=== PATIENT | male | born 1980 | race African-American/Black ===

== ENCOUNTER 2019-08-26 12:16 | Emergency (ER) | payer OTHER ==
[~2019-08-26] VITALS: Ht 185.4 cm; Wt 111.6 kg
[2019-08-26] MEDS ORDERED: SODIUM CHLORIDE 0.9% 1,000 ML IV ONE (12:26)
[2019-08-26 13:14] LABS: Basophils # (auto) 0 uL; Basophils % (auto) 0.5 % (0.0-2.0); Eosinophils # (auto) 0.1 uL; Hemoglobin 14.2 g/dL (13.5-17.5); Mean Corpuscular Hgb Conc. 32.1 g/dL (32.0-36.0); Monocytes # (auto) 0.5 uL; Nucleated Red Blood Cells % 0.1 %
[2019-08-26 13:20] LABS: Eosinophils % (auto) 1.1 % (0.0-7.0); Hematocrit 44.3 % (41.0-53.0); Lymphocytes % (auto) 13.7 % (10.0-50.0); Mean Corpuscular Hemoglobin 23.3 pg (28.0-32.0); Mean Corpuscular Volume 72.7 fL (80.0-100.0); Neutrophils # (auto) 5.9 uL; Neutrophils % (auto) 77.7 % (37.0-80.0); Platelet Count (auto) 172 10^3/uL (140-450); Red Cell Distribution Width 14.6 % (11.8-14.3); White Blood Cell 7.5 10^3/uL (4.4-10.8)
[2019-08-26 13:43] LABS: Alanine Aminotransferase 55 U/L (16-61); Albumin 3.7 g/dL (3.4-5.0); Anion Gap 4 (5-15); Blood Alcohol < 3.0 mg/dL (0-5); Blood Urea Nitrogen 12 mg/dL (7-18); Calcium 8.3 mg/dL (8.5-10.1); Carbon Dioxide 29 mmol/L (21-32); Chloride 109 mmol/L (98-107); Glucose 99 mg/dL (74-106); Potassium 3.9 mmol/L (3.5-5.1); Sodium 142 mmol/L (136-145)
[2019-08-26 13:48] LABS: Alkaline Phosphatase 75 U/L (45-117); Aspartate Aminotransferase 42 U/L (15-37); BUN/Creatinine Ratio 10.8; Bilirubin, Total 0.3 mg/dL (0.2-1.0); GFR African American 95 mL/min; GFR Non-African American 79 mL/min; Total Protein 7.5 g/dL (6.4-8.2)
[2019-08-26 14:16] LABS: Salicylate < 1.7 mg/dL (2.8-20.0)
[2019-08-26 14:19] LABS: Acetaminophen < 2.0 ug/mL (10-30)
[2019-08-26 15:45] VITALS: BP 135/87
== END 2019-08-26 16:02 | disposition home or self-care (01) ==
LOC: ER 12:25
DX: S00.83XA Contusion of other part of head, initial encounter (principal); T43.222A Poisoning by selective serotonin reuptake inhibitors, intentional self-harm, initial encounter; T39.312A Poisoning by propionic acid derivatives, intentional self-harm, initial encounter; X79.XXXA Intentional self-harm by blunt object, initial encounter; Y93.89 Activity, other specified; Y92.89 Other specified places as the place of occurrence of the external cause; Y99.8 Other external cause status
CPT/HCPCS: 36415; 70450; 71046; 80053; 80320; 80329; 84484; 85025; 96360; 96361; 99284; J7030

== ENCOUNTER 2019-09-30 12:50 | Emergency (ER) | payer OTHER ==
[~2019-09-30] VITALS: Ht 185.4 cm; Wt 108.9 kg
[2019-09-30 14:17] LABS: Alanine Aminotransferase 45 U/L (16-61); Albumin 4.1 g/dL (3.4-5.0); Anion Gap 4 (5-15); Aspartate Aminotransferase 39 U/L (15-37); BUN/Creatinine Ratio 8.7; Blood Alcohol < 3.0 mg/dL (0-5); Blood Urea Nitrogen 10 mg/dL (7-18); Calcium 9.3 mg/dL (8.5-10.1); Carbon Dioxide 30 mmol/L (21-32); Chloride 109 mmol/L (98-107); GFR African American 91 mL/min; GFR Non-African American 75 mL/min; Glucose 79 mg/dL (74-106); Magnesium 2.2 mg/dL (1.6-2.6); Sodium 143 mmol/L (136-145)
[2019-09-30 14:19] LABS: Acetaminophen < 2.0 ug/mL (10-30); Salicylate 1.8 mg/dL (2.8-20.0)
[2019-09-30 14:20] LABS: Alkaline Phosphatase 76 U/L (45-117); Bilirubin, Total 0.3 mg/dL (0.2-1.0); Total Protein 7.6 g/dL (6.4-8.2)
[2019-09-30 14:44] LABS: Basophils # (auto) 0 uL; Basophils % (auto) 0.7 % (0.0-2.0); Eosinophils # (auto) 0.1 uL; Eosinophils % (auto) 2.6 % (0.0-7.0); Hematocrit 46.9 % (41.0-53.0); Hemoglobin 14.9 g/dL (13.5-17.5); Lymphocytes # (auto) 1.6 uL; Lymphocytes % (auto) 33.3 % (10.0-50.0); Mean Corpuscular Hemoglobin 23.1 pg (28.0-32.0); Mean Corpuscular Hgb Conc. 31.8 g/dL (32.0-36.0); Mean Corpuscular Volume 72.6 fL (80.0-100.0); Monocytes # (auto) 0.3 uL; Neutrophils # (auto) 2.7 uL; Neutrophils % (auto) 56.4 % (37.0-80.0); Nucleated Red Blood Cells % 0.3 %; Platelet Count (auto) 177 10^3/uL (140-450); Red Blood Cells 6.45 10^6/uL (4.5-5.90); Red Cell Distribution Width 14.6 % (11.8-14.3); White Blood Cell 4.8 10^3/uL (4.4-10.8)
[2019-09-30] MEDS ORDERED: SODIUM CHLORIDE 0.9% 1,000 ML IV ONE ×2 (16:54)
[2019-09-30 17:37] LABS: Alcohol, Urine < 3.0 mg/dL (0-5); Amphetamine Screen, Urine NEGATIVE (NEGATIVE); Barbiturate Scree,Urine NEGATIVE (NEGATIVE); Benzodiazephine Screen, Urine NEGATIVE (NEGATIVE); Cannabinoid Screen, Urine NEGATIVE (NEGATIVE); Cocaine Screen, Urine NEGATIVE (NEGATIVE); Opiate Scree,Urine NEGATIVE (NEGATIVE); Phencyclidine Screen, Urine NEGATIVE (NEGATIVE)
[2019-09-30 18:28] VITALS: BP 132/79
== END 2019-09-30 18:31 | disposition home or self-care (01) ==
LOC: EDBD 12:50 → ER 12:53
DX: R45.851 Suicidal ideations (principal); F32.9 Major depressive disorder, single episode, unspecified; F41.9 Anxiety disorder, unspecified; R41.0 Disorientation, unspecified
CPT/HCPCS: 36415; 74018; 80053; 80307; 80320; 80329; 83540; 83735; 93005; 96360; 99284; J7030

== ENCOUNTER 2019-10-01 12:17 | Emergency (ER) | payer OTHER ==
[~2019-10-01] VITALS: Ht 185.4 cm; Wt 108.9 kg
[2019-10-01 13:31] LABS: Hemoglobin 14.3 g/dL (13.5-17.5); Monocytes # (auto) 0.4 uL; Neutrophils # (auto) 2.5 uL
[2019-10-01 13:33] LABS: Basophils # (auto) 0.1 uL; Basophils % (auto) 1.1 % (0.0-2.0); Eosinophils # (auto) 0.2 uL; Eosinophils % (auto) 4.8 % (0.0-7.0); Hematocrit 44.5 % (41.0-53.0); Lymphocytes # (auto) 1.8 uL; Lymphocytes % (auto) 36.9 % (10.0-50.0); Mean Corpuscular Hemoglobin 23.2 pg (28.0-32.0); Mean Corpuscular Hgb Conc. 32.2 g/dL (32.0-36.0); Mean Corpuscular Volume 72.2 fL (80.0-100.0); Monocytes % (auto) 7.7 % (0.0-12.0); Neutrophils % (auto) 49.5 % (37.0-80.0); Nucleated Red Blood Cells % 0.1 %; Platelet Count (auto) 181 10^3/uL (140-450); Red Blood Cells 6.16 10^6/uL (4.5-5.90); Red Cell Distribution Width 14.4 % (11.8-14.3)
[2019-10-01 13:51] LABS: Albumin 3.9 g/dL (3.4-5.0); BUN/Creatinine Ratio 9.9; Calcium 9.1 mg/dL (8.5-10.1); Potassium 3.7 mmol/L (3.5-5.1); Salicylate < 1.7 mg/dL (2.8-20.0)
[2019-10-01 13:53] LABS: Acetaminophen < 2.0 ug/mL (10-30)
[2019-10-01 13:54] LABS: Bilirubin, Total 0.3 mg/dL (0.2-1.0); Total Protein 7.8 g/dL (6.4-8.2)
[2019-10-01 13:59] LABS: INR 1.01 (0.9-1.15); Partial Thromboplastin Time 28.1 sec (23.64-32.05)
[2019-10-01 14:12] LABS: Bilirubin, Direct 0.1 mg/dL (0-0.2); Bilirubin, Total 0.4 mg/dL (0.2-1.0); Total Protein 7.5 g/dL (6.4-8.2)
[2019-10-01 17:24] VITALS: BP 136/76
== END 2019-10-01 17:35 ==
LOC: ER 12:17 → EEVIPCON 12:17 → ER 17:35
DX: T39.311A Poisoning by propionic acid derivatives, accidental (unintentional), initial encounter (principal); M47.896 Other spondylosis, lumbar region; F41.9 Anxiety disorder, unspecified; F32.9 Major depressive disorder, single episode, unspecified; Y92.9 Unspecified place or not applicable
CPT/HCPCS: 36415; 71046; 72131; 80053; 80076; 80329; 83540; 83550; 85025; 85610; 85730

== ENCOUNTER 2019-12-17 14:31 | Inpatient (IN) | payer OTHER ==
[~2019-12-17] VITALS: Ht 185.4 cm; Wt 112.0 kg
[2019-12-17 15:19] LABS: Basophils # (auto) 0 uL; Eosinophils # (auto) 0 uL; Hemoglobin 14.4 g/dL (13.5-17.5); Monocytes # (auto) 0.4 uL; Monocytes % (auto) 4.6 % (0.0-12.0); Red Cell Distribution Width 14.7 % (11.8-14.3)
[2019-12-17 15:22] LABS: Basophils % (auto) 0.4 % (0.0-2.0); Eosinophils % (auto) 0.1 % (0.0-7.0); Hematocrit 45.2 % (41.0-53.0); Lymphocytes # (auto) 1.1 uL; Lymphocytes % (auto) 11.9 % (10.0-50.0); Mean Corpuscular Hemoglobin 23.2 pg (28.0-32.0); Mean Corpuscular Hgb Conc. 31.8 g/dL (32.0-36.0); Mean Corpuscular Volume 72.9 fL (80.0-100.0); Neutrophils # (auto) 7.6 uL; Platelet Count (auto) 189 10^3/uL (140-450); Red Blood Cells 6.19 10^6/uL (4.5-5.90); White Blood Cell 9.2 10^3/uL (4.4-10.8)
[2019-12-17 15:36] LABS: Alcohol, Urine < 3.0 mg/dL (0-5); Amphetamine Screen, Urine NEGATIVE (NEGATIVE); Barbiturate Scree,Urine NEGATIVE (NEGATIVE); Benzodiazephine Screen, Urine NEGATIVE (NEGATIVE); Cannabinoid Screen, Urine NEGATIVE (NEGATIVE); Cocaine Screen, Urine NEGATIVE (NEGATIVE); Opiate Scree,Urine NEGATIVE (NEGATIVE); Phencyclidine Screen, Urine NEGATIVE (NEGATIVE)
[2019-12-17 15:39] LABS: Albumin 4.1 g/dL (3.4-5.0); Anion Gap 6 (5-15); Blood Alcohol < 3.0 mg/dL (0-5); Blood Urea Nitrogen 12 mg/dL (7-18); Calcium 9.1 mg/dL (8.5-10.1); Carbon Dioxide 26 mmol/L (21-32); Chloride 107 mmol/L (98-107); Glucose 90 mg/dL (74-106); Sodium 139 mmol/L (136-145)
[2019-12-17 15:43] LABS: Alanine Aminotransferase 45 U/L (16-61); Alkaline Phosphatase 72 U/L (45-117); Aspartate Aminotransferase 30 U/L (15-37); BUN/Creatinine Ratio 10.6; Bilirubin, Total 0.4 mg/dL (0.2-1.0); GFR African American 93 mL/min; GFR Non-African American 77 mL/min; Total Protein 8.2 g/dL (6.4-8.2)
[2019-12-17 16:10] LABS: Salicylate < 1.7 mg/dL (2.8-20.0)
[2019-12-17] MEDS ORDERED: D5W/SOD CHL 0.45% 1,000 ML IV ONE (17:30)
[2019-12-17] MEDS ORDERED: MORPHINE SULF INJ 2 MG/ML SYRINGE 1ML IV PRN (17:30)
[2019-12-17] MEDS ORDERED: NITROGLYCERIN 0.4 MG SL TAB SL PRN (17:30)
[2019-12-17 17:47] LABS: % Iron Saturation 86.4 % (20-55)
[2019-12-17 18:18] LABS: Acetaminophen < 2.0 ug/mL (10-30)
[2019-12-17 21:35] LABS: Albumin 3.7 g/dL (3.4-5.0); Calcium 8.6 mg/dL (8.5-10.1); Potassium 3.7 mmol/L (3.5-5.1)
[2019-12-17 21:39] LABS: % Iron Saturation 89.2 % (20-55); BUN/Creatinine Ratio 10.3; Bilirubin, Total 0.5 mg/dL (0.2-1.0); Total Protein 7.5 g/dL (6.4-8.2)
--- NOTE | 2019-12-17 22:50 | NUR ---
Telemetry admit from ER CARMEN CHENG admitted to Telemetry unit after SBAR received. Patient oriented to LOUIE BAÑUELOS primary RN, unit, room, bed, and unit policies regarding patient care and visiting hours. Patient now on continuous telemetry monitoring, tele box # 14 and telemetry reading on arrival to unit is NSR at 60bpm. Patient is A/Ox4, skin intact, on RA, no complaints of pain, SOB, or any distress. Call light is within reach. Guards are at bedside for safety. Patient weighed by bedscale and encouraged to call if they need something. All questions and concerns addressed, patient verbalized understanding.
--- NOTE | 2019-12-17 23:16 | NUR ---
Iza from poison control called. Updated on patient's status. Lab levels given. She stated they will follow up in the morning again to check on the patient.
[2019-12-17] MEDS ORDERED: SERT20CO PO (23:38)
[2019-12-18 01:37] LABS: Albumin 3.8 g/dL (3.4-5.0); BUN/Creatinine Ratio 11.9; Calcium 8.1 mg/dL (8.5-10.1); Potassium 3.7 mmol/L (3.5-5.1)
[2019-12-18 01:40] LABS: Bilirubin, Total 0.4 mg/dL (0.2-1.0); Total Protein 7.1 g/dL (6.4-8.2)
[2019-12-18 02:08] LABS: % Iron Saturation 81.2 % (20-55)
[2019-12-18 05:30] VITALS: BP 127/76
[2019-12-18 05:56] LABS: Basophils # (auto) 0 uL; Basophils % (auto) 0.7 % (0.0-2.0); Eosinophils # (auto) 0.2 uL; Eosinophils % (auto) 3.6 % (0.0-7.0); Hematocrit 40.9 % (41.0-53.0); Hemoglobin 13.3 g/dL (13.5-17.5); Lymphocytes # (auto) 1.6 uL; Mean Corpuscular Hemoglobin 23.7 pg (28.0-32.0); Mean Corpuscular Hgb Conc. 32.6 g/dL (32.0-36.0); Mean Corpuscular Volume 72.6 fL (80.0-100.0); Monocytes # (auto) 0.5 uL; Monocytes % (auto) 8.4 % (0.0-12.0); Neutrophils # (auto) 3.7 uL; Neutrophils % (auto) 60.3 % (37.0-80.0); Nucleated Red Blood Cells % 0.1 %; Platelet Count (auto) 176 10^3/uL (140-450); Red Blood Cells 5.63 10^6/uL (4.5-5.90); Red Cell Distribution Width 14.6 % (11.8-14.3); White Blood Cell 6.1 10^3/uL (4.4-10.8)
[2019-12-18 06:15] LABS: % Iron Saturation 53.2 % (20-55)
[2019-12-18 06:22] LABS: Albumin 3.6 g/dL (3.4-5.0); Calcium 8.4 mg/dL (8.5-10.1)
[2019-12-18 06:25] LABS: BUN/Creatinine Ratio 10.3; Bilirubin, Total 0.4 mg/dL (0.2-1.0); Total Protein 7.1 g/dL (6.4-8.2)
[2019-12-18 09:00] VITALS: BP 124/78
[2019-12-18 12:22] LABS: Potassium 3.8 mmol/L (3.5-5.1)
[2019-12-18 12:24] LABS: % Iron Saturation 34.4 % (20-55)
[2019-12-18 12:34] LABS: Albumin 3.5 g/dL (3.4-5.0); BUN/Creatinine Ratio 10.2; Bilirubin, Total 0.4 mg/dL (0.2-1.0); Calcium 8.8 mg/dL (8.5-10.1); Total Protein 7.1 g/dL (6.4-8.2)
[2019-12-18 13:00] VITALS: BP 129/74
[2019-12-18 17:00] VITALS: BP 130/78
[2019-12-18 19:17] LABS: % Iron Saturation 18.3 % (20-55)
[2019-12-18 19:25] LABS: Albumin 3.3 g/dL (3.4-5.0); BUN/Creatinine Ratio 9.9; Calcium 8.2 mg/dL (8.5-10.1); Potassium 3.8 mmol/L (3.5-5.1)
[2019-12-18 19:27] LABS: Bilirubin, Total 0.3 mg/dL (0.2-1.0); Total Protein 7.1 g/dL (6.4-8.2)
--- NOTE | 2019-12-18 19:40 | NUR ---
RECEIVED PATIENT FROM DAY SHIFT RN. PATIENT RESTING IN BED. NO S/S OF DISTRESS NOTED. C/O PAIN @ LOWER BACK @ 5/10. THERE IS NO PAIN MEDICATION SHOULD BE GIVEN PER MD ORDER. INSTRUCTED PATIENT TO TURN IN THE BED TO RELEASE THE PAIN FROM THE BACK. PATIENT VERBALIZED UNDERSTANDING. POC INSTRUCTED AND ENCOURAGED PATIENT TO CALL FOR LVN LPN IF NEEDED. BED IN LOWEST POSITION WITH SIDE RAILS UP X 2. CALL STREETER WITHIN REACH. ALARM ON. CONTINUE TO MONITOR FOR CHANGES Q1H AND PRN.
[2019-12-18 22:24] VITALS: BP 130/89
--- NOTE | 2019-12-18 22:28 | NUR ---
PATIENT C/O LLQ ABD PAIN @ 04/30. INSTRUCTED PATIENT TO CHANGE POSITION TO DECREASE THE PAIN. PATIENT VERBALIZED UNDERSTANDING. CONTINUE CARE.
[2019-12-19 01:07] LABS: Albumin 3.4 g/dL (3.4-5.0); BUN/Creatinine Ratio 9.8; Calcium 8.7 mg/dL (8.5-10.1); Potassium 3.8 mmol/L (3.5-5.1)
[2019-12-19 01:10] LABS: Bilirubin, Total 0.3 mg/dL (0.2-1.0)
--- NOTE | 2019-12-19 04:29 | NUR ---
PATIENT SLEEPING. NO S/S OF DISTRESS NOTED. GUARDS AT BEDSIDE. CONTINUE CARE.
[2019-12-19 05:10] VITALS: BP 114/69
[2019-12-19 07:27] LABS: % Iron Saturation 34.8 % (20-55)
[2019-12-19 07:28] LABS: Albumin 3.5 g/dL (3.4-5.0); Calcium 8.7 mg/dL (8.5-10.1); Potassium 3.9 mmol/L (3.5-5.1)
[2019-12-19 07:33] LABS: BUN/Creatinine Ratio 8.7; Bilirubin, Total 0.5 mg/dL (0.2-1.0); Total Protein 7.1 g/dL (6.4-8.2)
--- NOTE | 2019-12-19 08:00 | NUR ---
Opening Shift Note Assumed care of patient, awake and alert. No S/S of distress/SOB or pain. Instructed on POC and to call for assist PRN, will continue to monitor for changes Q1hr and PRN.
[2019-12-19 09:29] VITALS: BP 121/77
[2019-12-19] MEDS ORDERED: SERTRALINE HCL 50 MG TAB PO ONE (11:45)
[2019-12-19 11:59] LABS: % Iron Saturation 44.1 % (20-55); Calcium 9.3 mg/dL (8.5-10.1); Potassium 3.8 mmol/L (3.5-5.1)
[2019-12-19 12:06] LABS: Albumin 3.7 g/dL (3.4-5.0); Bilirubin, Total 0.5 mg/dL (0.2-1.0); Total Protein 7.5 g/dL (6.4-8.2)
[2019-12-19 13:00] VITALS: BP 118/77
[2019-12-19 17:15] VITALS: BP 120/71
[2019-12-19 19:02] LABS: % Iron Saturation 21.5 % (20-55); Albumin 3.7 g/dL (3.4-5.0); BUN/Creatinine Ratio 9.5; Calcium 9.2 mg/dL (8.5-10.1); Potassium 3.9 mmol/L (3.5-5.1)
[2019-12-19 19:04] LABS: Bilirubin, Total 0.3 mg/dL (0.2-1.0); Total Protein 7.9 g/dL (6.4-8.2)
--- NOTE | 2019-12-19 19:30 | NUR ---
RECEIVED PATIENT FROM DAY SHIFT RN. PATIENT RESTING IN BED. NO S/S OF DISTRESS NOTED. C/O PAIN @ LOWER BACK. THERE IS NO PAIN MEDICATION SHOULD BE GIVEN PER MD ORDER. INSTRUCTED PATIENT TO TURN IN THE BED TO RELEASE THE PAIN FROM THE BACK. PATIENT VERBALIZED UNDERSTANDING. PATIENT JUST HAD BED BATH. PATIENT TOLERATED WELL. POC INSTRUCTED AND ENCOURAGED PATIENT TO CALL FOR CHIEF CREATIVE OFFICER IF NEEDED. BED IN LOWEST POSITION WITH SIDE RAILS UP X 2. CALL STREETER WITHIN REACH. GUARDS AT BEDSIDE. CONTINUE TO MONITOR FOR CHANGES Q1H AND PRN.
--- NOTE | 2019-12-19 21:00 | NUR ---
PATIENT REPORTED PAIN @ LUQ @ 04/30. WILL PAGE . CONTINUE TO MONITOR.
--- NOTE | 2019-12-19 21:02 | NUR ---
Called/paged Dr. SANCHEZ called re: PATIENT C/O PAIN @ LLQ AROUND RIB CAGE, NEEDS MEDICATION. Waiting for call back. Continue care.
[2019-12-19 21:07] VITALS: BP 135/88
[2019-12-20 00:53] VITALS: BP 139/78
--- NOTE | 2019-12-20 00:54 | NUR ---
PATIENT C/O FEELING HOT FLUSH AND DIZZINESS, VITALS, TEMP 97.6, HR 62, RR 18, BP 139/78, O2 SAT 97% ON RA. ENCOURAGED PATIENT TO RELAX AND ICE CHIPS AND ICE WATER OFFERED. SUGGESTED PATIENT TO CHANGE POSITION SLOWLY IF HE STILL FEELING DIZZINESS. WILL REPORT TO MD SANCHEZ WHEN HE CALL BACK. CONTINUE TO MONITOR.
[2019-12-20 05:24] VITALS: BP 114/83
--- NOTE | 2019-12-20 07:20 | NUR ---
RECEIVED REPORT FROM NIGHT NURSE. PATIENT RESTING IN BED, NO DISTRESS NOTED. GUARDS AT BEDSIDE. WILL CONTINUE TO MONITOR.
[2019-12-20 09:00] VITALS: BP 117/71
--- NOTE | 2019-12-20 09:37 | NUR ---
PAGED DOCTOR LAURA. WILL WAIT FOR CALL BACK.
[2019-12-20] MEDS: SERTRALINE HCL 50 MG TAB PO SCH (10:09)
[2019-12-20 13:00] VITALS: BP 121/74
--- NOTE | 2019-12-20 15:40 | NUR ---
REPORT GIVEN TO ANABELA MARCANO.
[2019-12-20 16:52] VITALS: BP 124/80
--- NOTE | 2019-12-20 19:20 | NUR ---
Opening Shift Note Assumed care of patient, awake and alert. No S/S of distress/SOB or pain. Safety measures in place side rails x2 up, bed in lowest position, and call light within reach. Instructed on POC and to call for assist PRN, will continue to monitor for changes Q1hr and PRN.
[2019-12-20 22:00] VITALS: BP 116/78
[2019-12-21 05:00] VITALS: BP 115/75
--- NOTE | 2019-12-21 07:45 | NUR ---
Opening Shift Note Assumed care of patient, awake and alert. No S/S of distress/SOB but has bearable abdominal pain. Instructed on POC and to call for assist PRN, will continue to monitor for changes Q1hr and PRN.
[2019-12-21 09:42] VITALS: BP 125/77
[2019-12-21 12:46] VITALS: BP 121/69
[2019-12-21 16:23] VITALS: BP 128/75
[2019-12-21] MEDS ORDERED: SERT50TA PO (16:28)
--- NOTE | 2019-12-21 16:30 | NUR ---
Dr. Lester was in to see patient and MD left discharge orders.
[2019-12-21 16:56] VITALS: BP 128/75
--- NOTE | 2019-12-21 17:40 | NUR ---
Discharge instructions given as ordered. Encourage to follow up with [facility] MD as instructed. All questions and concerns addressed. Patient verbalized understanding. Medication reconciliation form completed and copy given to guard. IV removed with catheter intact, pressure dressing applied, landry catheter removed. Telemetry unit returned to ICU. Patient waiting for transport to long-term at this time.
--- NOTE | 2019-12-21 18:22 | NUR ---
Phoned Dr. Lester if patient can have his dose of Zoloft before patient is discharge as patient stated that he will not get it tonight in correction. MD stated that patient can have medication before discharge.
[2019-12-21] MEDS: SERTRALINE HCL 50 MG TAB PO SCH (18:26)
--- NOTE | 2019-12-21 19:05 | NUR ---
Patient still waiting for transport at this time. Patient aaox4, in no pain and distress.
--- NOTE | 2019-12-21 20:45 | NUR ---
PATIENT ESCORTED OFF UNIT BY [facility] [employer]. PATIENT FREE OF PAIN AND DISTRESS. Signed: 12/21/19 at 2102 by MANFRED RAMSEY RN RN
[2019-12-21] MEDS ORDERED: SERTRALINE HCL 50 MG TAB PO SCH (22:00)
== END 2019-12-21 17:20 | DRG 918 ==
LOC: EDBD 14:31 → ER 14:31 → EEVIPCON 14:31 → TELE 14:32 → TELE-E-ADS 22:50
PROVIDERS: ADMIT Internal Medicine; ATTEND Internal Medicine
DX: T39.1X2A Poisoning by 4-Aminophenol derivatives, intentional self-harm, initial encounter (principal); M62.82 Rhabdomyolysis; T39.312A Poisoning by propionic acid derivatives, intentional self-harm, initial encounter; T45.4X2A Poisoning by iron and its compounds, intentional self-harm, initial encounter; D64.9 Anemia, unspecified; F41.9 Anxiety disorder, unspecified; F32.9 Major depressive disorder, single episode, unspecified; F17.210 Nicotine dependence, cigarettes, uncomplicated; Y92.89 Other specified places as the place of occurrence of the external cause; Z82.3 Family history of stroke; Z82.49 Family history of ischemic heart disease and other diseases of the circulatory system
CPT/HCPCS: 36415; 80053; 80307; 80320; 80329; 82550; 83540; 83550; 85025; 87081; 93005; 96360; 99291; G0378